=== PATIENT | female | born 1985 | race African-American/Black ===

== ENCOUNTER 2018-08-18 08:33 | Emergency (ER) | payer OTHER, SELFPAY ==
--- NOTE | 2018-08-18 08:34 | ED.ABDPAIN ---
HPI - Abdominal Pain General Chief Complaint: Abdominal Pain Stated Complaint: RIGHT SIDE LUMP IN STOMACH,PAIN/DISCOMFORT Time Seen by Provider: 08/18/18 08:34 Source: patient Mode of arrival: ambulatory Limitations: no limitations History of Present Illness HPI narrative: Patient is a 32-year-old female here for evaluation of a lump in her right side of abdomen. She states that she noticed last evening when she got out of the shower. Had never noticed it before. When she woke up this morning she noticed pain with the right side of her abdomen as well. No urinary symptoms. States she has had some diarrhea over the past week. Also has had vaginal discharge which states this is not new. No recent antibiotic use. Has had an ectopic surgery back in 2016 but no other abdominal surgeries. Related Data Previous Rx's Medication Instructions Recorded sulfamethoxazole-trimethoprim 1 tab PO BID 5 Days #10 tab 08/18/18 [Bactrim DS] Allergies Allergy/AdvReac Type Severity Reaction Status Date / Time No Known Drug Allergies Allergy Verified 08/18/18 08:57 Review of Systems Constitutional Denies fever(s) Cardiovascular Denies chest pain and Denies dyspnea Respiratory Denies dyspnea Gastrointestinal Gastrointestinal: Reports abdominal pain, Denies cramping, Reports diarrhea, Denies nausea and Denies vomiting Genitourinary Denies urinary urgency and Reports vaginal discharge Musculoskeletal Denies myalgias and Denies arthralgias Integumentary/Breasts Denies lesions and Denies rash [facility] Medical History Ectopic (Acute) Healthy adult (Acute) Social History Smoking Status: Never smoker Exam Initial Vital Signs Initial Vital Signs: Vital Signs Temperature 98.2 F 08/18/18 08:51 Pulse Rate 74 08/18/18 08:51 Respiratory Rate 18 08/18/18 08:51 Blood Pressure 123/82 08/18/18 08:51 Pulse Oximetry 99 08/18/18 08:51 Const General: cooperative, healthy appearing, comfortable, well developed and well groomed Orientation: alert, awake and oriented x3 Resp Effort & Inspection: normal respiratory effort Cardio Rate: regular rate GI Inspection: non-distended Palpation: soft, No firm, mass ( 2 cm soft freely movable mass right flank no overlying skin issues) and tender Skin Lesions: lesions noted Rashes: rash noted Neuro General: alert, awake and oriented x3 Extrem General: normal to inspection and capillary refill normal Psych Appearance: grossly normal and well kempt Course Orders Ordered: ED Orders 08/18/18 08:46 US abdomen limited Stat Vital Signs - 8 hr 08/18/18 08:51 Temperature 98.2 F Pulse Rate 74 Respiratory Rate 18 Blood Pressure 123/82 Pulse Oximetry 99 MDM - Abdominal Pain Imaging Data US - abdomen: Radiologist's impression: [address] [address] Ultrasound Report Signed Patient: SETH REID [facility]#: [id number] : 1985Acct:[id number] Age/Sex: 32 / FDate of Service: 08/18/18 Loc: ED Accession Number: [id number] Procedure: US abdomen limited Ordering Provider: Kameron Goldberg D.O. PROCEDURE: US ABDOMEN LIMITED INDICATIONS: sub Q isaiah RUQ would like eval with US TECHNIQUE: Real-time focused scanning was performed of the abdomen, with image documentation. COMPARISON: None. FINDINGS: Targeted sonographic imaging was performed at the site of the patient's area of concern within the right upper quadrant. There is a small subcutaneous loculated fluid collection identified within this region that measures 9 x 9 x 7 mm. No internal vascularity is evident. IMPRESSION: Small subcutaneous fluid collection within the right upper quadrant may represent an abscess. Focal edema may also have this appearance. Dictated by: Joaquin Cox M.D. on 08/18/2018 at 9:11 Approved by: Joaquin Cox M.D. on 08/18/2018 at 9:12 [facility] Narrative Medical decision making narrative: ultrasound of the area in question shows a relatively small fluid collection. This could be a cyst versus abscess. Patient is tender over the area however no skin findings concerning for cellulitis. Given the fact that she just found this him that it is tender to palpation will do a trial of antibiotics to see if it does not improve. I did inform her that despite these antibiotics if the area in question becomes larger or she develops redness over the skin she does need to return to the emergency department. I feel that this is too deep for me to drain or needle aspirate here in the ER. Also informed her that this is a cyst it will not change in size in a very short period of time. Informed her that if it gets larger over the course of weeks/ months that she does need to talk with her primary doctor about getting in to see a general surgeon to have her removed. Patient expressed understanding and agreement with this plan. Discharge Plan Departure Patient Disposition: Home Clinical Impression: Abscess Instructions: DI for Skin Abscess Activity Restrictions/Additional Instructions: you were started on antibiotics today to see if these do not help with the little lump that we felt an your abdomen. Despite these antibiotics if you start to notice redness on the skin or this lump becomes larger or more painful you do need to return to the emergency department for re-evaluation. If this lump remains the same size or if it enlarges over the course of weeks/ months that it is more likely a cyst and you do need to follow-up with Your primary doctor for further evaluation and treatment. Prescriptions: New sulfamethoxazole-trimethoprim [Bactrim DS] 800-160 mg tablet 1 tab PO BID 5 Days Qty: 10 RF: 0
--- NOTE | 2018-08-18 08:46 | DI.US.S_ITS ---
PROCEDURE: US ABDOMEN LIMITED INDICATIONS: sub Q isaiah RUQ would like eval with US TECHNIQUE: Real-time focused scanning was performed of the abdomen, with image documentation. COMPARISON: None. FINDINGS: Targeted sonographic imaging was performed at the site of the patient's area of concern within the right upper quadrant. There is a small subcutaneous loculated fluid collection identified within this region that measures 9 x 9 x 7 mm. No internal vascularity is evident. IMPRESSION: Small subcutaneous fluid collection within the right upper quadrant may represent an abscess. Focal edema may also have this appearance. Dictated by: Joaquin Cox M.D. on 08/18/2018 at 9:11 Approved by: Joaquin Cox M.D. on 08/18/2018 at 9:12
[2018-08-18 08:51] VITALS: BP 123/82; PULSE 74; RESP 18; TEMP 36.8; O2SAT 99; BMI 29.8
[2018-08-18 10:31] VITALS: BP 117/82; PULSE 68; RESP 14; O2SAT 98
== END 2018-08-18 10:42 | disposition home or self-care (01) ==
LOC: ED 10:41
PROVIDERS: Emergency Provider Emergency Medicine
DX: L02.91 Cutaneous abscess, unspecified (principal)
CPT/HCPCS: 76705; 99282; 99283